=== PATIENT | female | born 1945 | race Caucasian/White ===

== ENCOUNTER 2018-12-29 11:05 | Emergency (ER) | payer OTHER, MEDICARE ==
[~2018-12-29] VITALS: Ht 152.4 cm; Wt 52.3 kg
[2018-12-29] MEDS ORDERED: NS (IVPB) 250 ML IV ONE (11:30)
[2018-12-29] MEDS ORDERED: fentaNYL INJECTION 100 MCG/2 ML AMP IVP ONE (11:30)
[2018-12-29] MEDS ORDERED: ETOMIDATE IV SOLN 20 MG/10 ML VIAL IV ONE (11:30)
[2018-12-29] MEDS ORDERED: ONDANSETRON 4 MG/2 ML (SDV) Z0FRAN IVP ONE (11:30)
--- NOTE | 2018-12-29 11:53 | Diagnostic Imaging Report ---
INDICATION: Left elbow dislocation, post reduction. Time of exam 11:40 AM Correlation is made with radiographs earlier the same day. Lateral view left elbow was obtained. There has been interval reduction of the posterior elbow dislocation. Alignment appears to be significantly improved and near-anatomic. No fracture fragments on this single view are identified. IMPRESSION: Interval reduction of posterior elbow dislocation. Dictated by: Dictated on workstation # [id number]
[2018-12-29] MEDS ORDERED: HYDR-4226 PO (11:58)
--- NOTE | 2018-12-29 11:58 | ED Upper Extremity ---
General Chief Complaint: Upper Extremity Stated Complaint: DISLOCATED LEFT ELBOW Source: patient Exam Limitations: no limitations History of Present Illness Date Seen by Provider: Dec 29, 2018 Time Seen by Provider: 11:00 Initial Comments To ER from occupational health where she presented with left elbow pain. She tripped on a mat at school and fell on an outstretched arm, x-rays done at occupational health showed posterior elbow dislocation. She was referred here. Onset: just prior to arrival Severity: moderate Pain/Injury Location: left elbow Method of Injury: fell Modifying Factors: Worse With Movement Allergies and Home Medications Allergies Coded Allergies: Sulfa (Sulfonamide Antibiotics) (Unverified Allergy, Unknown, RASH, 10/05/15) PER PT Sugars, Metabolically Active (Unverified Adverse Reaction, Unknown, 10/05/15) PER PT lactase (Unverified Adverse Reaction, Unknown, 10/05/15) PER PT wheat (Unverified Adverse Reaction, Unknown, 10/05/15) PER PT Home Medications Hydrocodone/Acetaminophen 1 Each Tablet, 1 TAB PO Q6H Prescribed by: MELVA OTOOLE on 12/29/18 1158 Patient Home Medication List Home Medication List Reviewed: Yes Review of Systems Constitutional: see HPI EENTM: see HPI Respiratory: no symptoms reported Cardiovascular: no symptoms reported Genitourinary: no symptoms reported Musculoskeletal: see HPI Skin: no symptoms reported Physical Exam Vital Signs Vital Signs - First Documented 12/29/18 11:09 Temp 37.1 Pulse 67 Resp 17 B/P (MAP) 161/74 (103) Pulse Ox 100 O2 Delivery Room Air Capillary Refill : Height, Weight, BMI Height: 5'0.00" Weight: 112lbs. 0.0oz. 50.008150vh; 21.9 BMI Method: General Appearance: WD/WN, no apparent distress HEENT: PERRL/EOMI, normal ENT inspection Respiratory: no respiratory distress, no accessory muscle use Shoulder: normal inspection, non-tender Elbow/Forearm: Left, limited ROM, pain Hand: normal inspection, non-tender, Left Neurologic/Psychiatric: alert, normal mood/affect, oriented x 3 Skin: normal color, warm/dry Progress/Results/Core Measures Results/Orders My Orders Orders - MELVA OTOOLE APRN Ed Iv/Invasive Line Start (12/29/18 11:18) Elbow, Left, 2 Views (12/29/18 11:18) Ns (Ivpb) (Sodium Chloride 0.9%) (12/29/18 11:30) Ondansetron Injection (Zofran Injectio (12/29/18 11:30) Fentanyl Injection (Sublimaze Injection (12/29/18 11:30) Etomidate Injection (Amidate Injection) (12/29/18 11:30) Medications Given in ED Current Medications Medications Dose Ordered Sig/Omari Route Start Time Stop Time Status Last Admin Dose Admin Etomidate 15 mg ONCE ONCE IV 12/29/18 11:30 12/29/18 11:31 DC 12/29/18 11:28 15 MG Fentanyl Citrate 50 mcg ONCE ONCE IVP 12/29/18 11:30 12/29/18 11:31 DC 12/29/18 11:27 25 MCG Ondansetron HCl 4 mg ONCE ONCE IVP 12/29/18 11:30 12/29/18 11:31 DC 12/29/18 11:25 4 MG Sodium Chloride 250 ml @ 999 mls/hr Q16M ONCE IV 12/29/18 11:30 12/29/18 11:45 DC 12/29/18 11:25 999 MLS/HR Vital Signs/I&O 12/29/18 11:09 Temp 37.1 Pulse 67 Resp 17 B/P (MAP) 161/74 (103) Pulse Ox 100 O2 Delivery Room Air Progress Progress Note : Progress Note NAME: CONNIE WATT [facility] REC#: [id number] PT STATUS: REG ER : 1945 PHYSICIAN: MELVA OTOOLE APRN ADMIT DATE: 12/29/18/ER Draft Date of Exam:12/29/18 ELBOW, LEFT, 2 VIEWS INDICATION: Left elbow dislocation, post reduction. Time of exam 11:40 AM Correlation is made with radiographs earlier the same day. Lateral view left elbow was obtained. There has been interval reduction of the posterior elbow dislocation. Alignment appears to be significantly improved and near-anatomic. No fracture fragments on this single view are identified. IMPRESSION: Interval reduction of posterior elbow dislocation. Dictated on workstation # [id number] Dict: 12/29/18 1151 Trans: 12/29/18 1153 [facility] [id number] Interpreted by: LAURA SOLOMON MD Electronically signed by: Departure Communication (Admissions) 1204-conscious sedation was done using 25 Micrograms of fentanyl and 15 mg of etomidate. Patient signed consent for this. Then the elbow was kept at 90, traction was applied both inferiorly and anteriorly and the elbow reduced. This did re-dislocate during radiographs specifically for the AP film, it was then reduced again with minimal effort. She was splinted at 90 after it was reduced. Maintains strong radial pulse, normal thumbs up sign normal I no tingling in the fingers. Impression Primary Impression: Posterior dislocation of left elbow Qualified Codes: S53.125A - Posterior dislocation of left ulnohumeral joint, initial encounter Disposition: HOME, SELF-CARE Condition: Improved Departure-Patient Inst. Decision time for Depature: 11:57 Referrals: MING ARZOLA DO (PCP) Primary Care Physician JESUSITA PHILLIP MD Patient Instructions: NO INSTRUCTIONS GIVEN Add. Discharge Instructions: Keep the sling and splint on at all times until you follow up with Dr. Phillip. Keep this clean and dry. This means a trash bag over the arm when showering or bathing. Pain medication as needed. Return to ER for any concerns. All discharge instructions reviewed with patient and/or family. Voiced understanding. Scripts Hydrocodone/Acetaminophen ([place] 5-325 Tablet) 1 Each Tablet 1 TAB PO Q6H for Pain MDD 10 TABS for 7 Days, #14 TAB Prov: MELVA OTOOLE APRN 12/29/18 MELVA OTOOLE APRN Dec 29, 2018 11:58
[2018-12-29 12:47] VITALS: BP 152/77
== END 2018-12-29 12:47 | disposition home or self-care (01) ==
LOC: EDUNIT# 11:05 → ER 11:08
DX: S53.125A Posterior dislocation of left ulnohumeral joint, initial encounter (principal); Z88.2 Allergy status to sulfonamides; W01.0XXA Fall on same level from slipping, tripping and stumbling without subsequent striking against object, initial encounter; Y92.219 Unspecified school as the place of occurrence of the external cause
CPT/HCPCS: 24600; 29105; 73070; 93041; 96374; 96375

== ENCOUNTER → 2018-12-29 | Outpatient (REF) ==
[~2018-12-29] MED LIST: HYDR-4226 PO
--- NOTE | 2018-12-29 10:59 | Diagnostic Imaging Report ---
INDICATION: Fall with left elbow injury. TIME OF EXAM: 10:37 AM FINDINGS: Three views of the left elbow were obtained. There is a posterior dislocation at the elbow. The proximal ulna and proximal radius are dislocated posteriorly. A curvilinear osseous density is noted adjacent to the head of the radius on the oblique view suggestive of a fracture fragment. IMPRESSION: Posterior elbow dislocation. Dictated by: Dictated on workstation # [id number]
--- NOTE | 2018-12-29 11:07 | Diagnostic Imaging Report ---
INDICATION: Fall with left elbow pain and limited range of motion. Time of exam 10:31 AM 2 views of the left humerus were obtained. Alignment at the shoulder is normal. There is a posterior elbow dislocation noted, described on elbow radiographs. Humerus appears to be intact without evidence of fracture. IMPRESSION: Posterior left elbow dislocation. Dictated by: Dictated on workstation # [id number]
== END | disposition home or self-care (01) ==
LOC: OCC 10:09
PROVIDERS: ATTEND Nurse Practitioner Family
CPT/HCPCS: 73060; 73080

== ENCOUNTER → 2019-01-10 | Outpatient (CLI) | payer OTHER, MEDICARE ==
--- NOTE | 2019-01-10 09:58 | Diagnostic Imaging Report ---
INDICATION: Left elbow dislocation on 12/29/2018. Study is performed for followup. TIME OF EXAM: 9:39 AM Correlation is made with prior elbow radiographs from 12/29/2018. FINDINGS: The elbow is now encased in a fiberglass cast. This does obscure bone detail. Two views of the elbow demonstrate normal alignment. No dislocation is seen. No fractures are identified. No definite joint effusion is seen. IMPRESSION: Anatomic alignment to the left elbow. No acute abnormality is detected. Dictated by: Dictated on workstation # [id number]
== END ==
LOC: ORTHO 09:30
PROVIDERS: ATTEND Orthopaedic Surgery
DX: S53.125A Posterior dislocation of left ulnohumeral joint, initial encounter (principal); W01.0XXA Fall on same level from slipping, tripping and stumbling without subsequent striking against object, initial encounter
CPT/HCPCS: 73070; 99213

== ENCOUNTER → 2019-01-24 | Outpatient (CLI) | payer OTHER, MEDICARE ==
--- NOTE | 2019-01-24 10:01 | Diagnostic Imaging Report ---
INDICATION: Elbow dislocation. COMPARISON: 01/10/2019 TECHNIQUE: 4 radiographs of the left elbow dated 01/24/2019 FINDINGS: Interval removal of cast material. No acute fracture or dislocation. No destructive osseous process. Joint spaces are well-maintained. No elbow joint effusion. No suspicious radiopaque foreign body. IMPRESSION: Interval removal of cast material without acute osseous abnormality. Alignment remains in anatomic positioning. Dictated by: Dictated on workstation # [id number]
== END ==
LOC: ORTHO 09:09
PROVIDERS: ATTEND Orthopaedic Surgery
DX: Z47.89 Encounter for other orthopedic aftercare (principal); S53.125D Posterior dislocation of left ulnohumeral joint, subsequent encounter
CPT/HCPCS: 73080; 99213

== ENCOUNTER → 2019-02-07 | Outpatient (CLI) | payer OTHER | LOC: ORTHO 09:20 | PROVIDERS: ATTEND Orthopaedic Surgery | DX: S53.125A Posterior dislocation of left ulnohumeral joint, initial encounter (principal) | CPT/HCPCS: 99213 ==

== ENCOUNTER → 2019-02-28 | Outpatient (CLI) | payer OTHER | LOC: ORTHO 09:27 | PROVIDERS: ATTEND Orthopaedic Surgery | DX: S53.125A Posterior dislocation of left ulnohumeral joint, initial encounter (principal) | CPT/HCPCS: 99213 ==

== ENCOUNTER → 2019-03-28 | Outpatient (CLI) | payer OTHER | LOC: ORTHO 09:20 | PROVIDERS: ATTEND Orthopaedic Surgery | DX: S53.145D Lateral dislocation of left ulnohumeral joint, subsequent encounter (principal); S53.125D Posterior dislocation of left ulnohumeral joint, subsequent encounter; X58.XXXD Exposure to other specified factors, subsequent encounter | CPT/HCPCS: 99213 ==

== ENCOUNTER 2019-04-01 15:45 | Outpatient (RCR) | payer OTHER | END 2019-04-01 16:17 | disposition home or self-care (01) | PROVIDERS: ATTEND Orthopaedic Surgery | DX: S53.125A Posterior dislocation of left ulnohumeral joint, initial encounter (principal) ==

== ENCOUNTER → 2020-08-02 | Outpatient (CLI) | payer MEDICARE, OTHER ==
--- NOTE | 2020-08-02 14:48 | Diagnostic Imaging Report ---
Indication: Low back pain. Time of exam 1:44 PM AP, both oblique and lateral views of the lumbar spine were obtained. Curvature is normal. There is minimal anterolisthesis L3 on L4. Vertebral body heights are well-maintained. No acute compression fracture is detected. Disc spaces are fairly well-maintained. There is generalized demineralization. There are atherosclerotic calcifications in the abdominal aorta. No definite spondylolysis or spondylolisthesis is identified. IMPRESSION: No acute bony abnormality is detected. Dictated by: Dictated on workstation # [id number]
== END ==
LOC: RAD 13:21
PROVIDERS: ATTEND Nurse Practitioner Family
DX: M99.03 Segmental and somatic dysfunction of lumbar region (principal); M99.04 Segmental and somatic dysfunction of sacral region
CPT/HCPCS: 72110